=== PATIENT | male | born 1985 | race African-American/Black ===

== ENCOUNTER 2017-05-30 09:28 | Emergency (ER) | payer MEDICAID ==
[~2017-05-30] VITALS: Ht 185.4 cm; Wt 78.6 kg
[2017-05-30] MEDS ORDERED: KETOROLAC TROMETHAMINE 10 MG TABLET PO ONE (11:00)
[2017-05-30 11:38] VITALS: BP 124/73
== END 2017-05-30 11:45 | disposition home or self-care (01) ==
LOC: EMS 09:31
DX: S83.92XA Sprain of unspecified site of left knee, initial encounter (principal); F17.210 Nicotine dependence, cigarettes, uncomplicated; X50.1XXA Overexertion from prolonged static or awkward postures, initial encounter; Y93.67 Activity, basketball; Y92.89 Other specified places as the place of occurrence of the external cause; Y99.8 Other external cause status
CPT/HCPCS: 99284

== ENCOUNTER 2018-08-29 17:20 | Emergency (ER) | payer MEDICAID, OTHER ==
[~2018-08-29] VITALS: Ht 188 cm; Wt 84.1 kg
[2018-08-29] MEDS: KETOROLAC TROMETHAMINE 30 MG/ML VIAL IM ONE (19:02)
[2018-08-29] MEDS: BACLOFEN 10 MG TABLET PO ONE (19:02)
[2018-08-29] MEDS: LIDOCAINE 5% TRANSDERMAL PATCH TD ONE (19:02)
[2018-08-29 19:15] VITALS: BP 134/78
== END 2018-08-29 19:46 | disposition home or self-care (01) ==
LOC: EMS 17:20
DX: S39.012A Strain of muscle, fascia and tendon of lower back, initial encounter (principal); F17.210 Nicotine dependence, cigarettes, uncomplicated; X50.0XXA Overexertion from strenuous movement or load, initial encounter; Y93.02 Activity, running; Y92.89 Other specified places as the place of occurrence of the external cause; Y99.8 Other external cause status
CPT/HCPCS: 96372; 99283; J1885

== ENCOUNTER 2020-02-27 22:54 | Emergency (ER) | payer OTHER ==
[~2020-02-27] VITALS: Ht 182.9 cm; Wt 81.8 kg
[2020-02-28] MEDS ORDERED: ACETAMINOPHEN 325 MG TABLET PO ONE (00:45)
[2020-02-28] MEDS ORDERED: PERTUSS(ACELL),DIPH,TET VAC/PF 0.5 ML VIAL IM ONE (00:45)
[2020-02-28] MEDS ORDERED: IBUPROFEN 400 MG TABLET PO ONE (00:45)
[2020-02-28 01:24] LABS: BASOPHILS % (AUTO) 0.2 % (0.0-2.0); EOSINOPHILS % (AUTO) 0 % (1.0-6.0); HEMATOCRIT 45.2 % (41-53); HEMOGLOBIN 15.5 g/dL (13.5-17.5); LYMPHOCYTES # (AUTO) 1.4 K/uL (1.0-4.8); LYMPHOCYTES % (AUTO) 9.9 % (22.0-44.0); MEAN CORPUSCULAR HEMOGLOBIN 32.4 pg (26.0-34.0); MEAN CORPUSCULAR HGB CONC 34.3 G/dL (31.0-37.0); MEAN CORPUSCULAR VOLUME 94 fL (80-100); MONOCYTES % (AUTO) 6.8 % (2.0-9.0); NEUTROPHILS # (AUTO) 11.7 K/uL (1.8-7.7); NEUTROPHILS % (AUTO) 83.1 % (40.0-70.0); PLATELET COUNT (AUTO) 181 K/uL (150-450); RED CELL DISTRIBUTION WIDTH 13.2 % (11.5-14.5)
[2020-02-28 01:34] LABS: ANION GAP 7 mmol/L (8-16); CALCIUM, TOTAL 8.9 mg/dL (8.8-10.5); CARBON DIOXIDE 30 mmol/L (22-29); CHLORIDE 106 mmol/L (98-107); CREATININE 1.22 mg/dL (0.60-1.30); GLOMERULAR FILTR. RATE CALC > 60 mL/min (>60); GLUCOSE,RANDOM 101 mg/dL (70-110); SODIUM SERUM 143 mmol/L (136-145); UREA NITROGEN, BLOOD 12 mg/dL (7-18)
[2020-02-28 01:38] LABS: ALANINE AMINOTRANSFERASE 32 U/L (12-78); ALBUMIN 3.8 g/dL (3.4-5.0); ALKALINE PHOSPHATASE 132 U/L (46-116); ASPARTATE AMINOTRANSFERASE 36 U/L (15-37); BILIRUBIN,TOTAL 0.4 mg/dL (0.1-1.0); TOTAL PROTEIN, SERUM 7.3 g/dL (6.4-8.2)
[2020-02-28] MEDS ORDERED: IOVERSOL 350 MG/ML 100 ML VIAL ONE (02:00)
[2020-02-28] MEDS ORDERED: SODIUM CHLORIDE 0.9% 100 ML ONE (02:00)
[2020-02-28 04:22] VITALS: BP 132/79
== END 2020-02-28 06:33 | disposition home or self-care (01) ==
LOC: EMS 22:54
DX: S80.212A Abrasion, left knee, initial encounter (principal); F17.210 Nicotine dependence, cigarettes, uncomplicated; Y35.811A Legal intervention involving manhandling, law enforcement official injured, initial encounter; Y93.02 Activity, running; Y92.89 Other specified places as the place of occurrence of the external cause; Y99.8 Other external cause status
CPT/HCPCS: 29505; 36415; 73562; 73706; 80053; 85025; 90471; 90715; 99285; G0480; J7050; Q9967; 29530